=== PATIENT | male | born 1995 | race Caucasian/White ===

== ENCOUNTER 2016-11-21 19:34 | Observation (INO) | payer OTHER ==
[~2016-11-21] VITALS: Ht 180.3 cm; Wt 70.0 kg
[2016-11-21 19:39] VITALS: BP 129/70; PULSE 92; RESP 18; TEMP 97.9; O2SAT 98
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
[2016-11-21] MEDS ORDERED: MORPHINE SULFATE 8 MG/ML INJ IV PUSH ONE ×2 (20:00→22:30)
[2016-11-21 20:15] VITALS: BP 131/73; PULSE 87; RESP 18; O2SAT 98
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
[2016-11-21 21:00] VITALS: BP 117/62; PULSE 85; RESP 18; O2SAT 98
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
[2016-11-21 22:10] VITALS: BP 136/63; PULSE 88; RESP 18; O2SAT 100
[2016-11-21] MEDS ORDERED: NALOXONE HCL 0.4 MG/ML AMP IV PRN (22:30)
[2016-11-21] MEDS ORDERED: oxyCODONE/ACETAMINOPHEN 10 MG/325 MG TAB PO PRN (22:30)
[2016-11-21] MEDS ORDERED: ONDANSETRON HCL 4 MG/2 ML VIAL IV PRN (22:30)
[2016-11-21] MEDS ORDERED: SODIUM CHLORIDE 0.9% FLUSH 5 ML FLUSH IVF PRN (22:30)
[2016-11-21] MEDS ORDERED: HYDROmorphone HCL PF 1 MG/ML VIAL IV PRN (22:30)
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
[2016-11-21] MEDS ORDERED: METHOCARBAMOL 500 MG TAB PO PRN (23:15)
[2016-11-21 23:19] VITALS: BP 117/56
[2016-11-21] MEDS: D5-NS + KCL 20 MEQ INJ 1,000 ML IV SCH (23:35)
[2016-11-22] MEDS: ACETAMINOPHEN/HYDROcodone 325 MG/5 MG TAB PO PRN ×2 (00:04→18:25)
[2016-11-22 00:21] VITALS: BP 131/61; PULSE 71; RESP 18; TEMP 97.8; O2SAT 97
[2016-11-22 05:58] LABS: BASOPHIL % 0.2 % (0.0-2.0); EOSINOPHIL % 0.2 % (0.0-4.0); HEMATOCRIT 36.9 % (39.0-51.0); HEMO FLAGS DIFF FINAL; LYMPH % 13.6 % (9.0-44.0); LYMPHOCYTE # 1.7 TH/MM3 (1.0-4.8); MEAN CELL VOLUME 86.9 FL (80.0-100.0); MEAN CORPUSCULAR HEMOGLOBIN 30.5 PG (27.0-34.0); MEAN CORPUSCULAR HGB CONC 35.1 % (32.0-36.0); MONO % 6.8 % (0.0-8.0); NEUT % 79.2 % (16.0-70.0); PLATELET COUNT 211 TH/MM3 (150-450); RED BLOOD COUNT 4.25 MIL/MM3 (4.50-5.90); RED CELL DISTRIBUTION WIDTH 13.3 % (11.6-17.2); WHITE BLOOD COUNT 12.6 TH/MM3 (4.0-11.0)
[2016-11-22 06:07] LABS: BICARBONATE 24.3 MEQ/L (21.0-32.0); POTASSIUM 3.7 MEQ/L (3.5-5.1)
[2016-11-22 07:43] VITALS: BP 115/56; PULSE 74; RESP 17; TEMP 98.4; O2SAT 98
[2016-11-22] MEDS: D5-NS + KCL 20 MEQ INJ 1,000 ML IV SCH ×2 (08:20→18:29)
[2016-11-22] MEDS: MORPHINE SULFATE 4 MG/ML INJ IV PRN ×2 (08:40→14:48)
[2016-11-22] MEDS ORDERED: SODIUM CHLORIDE 0.9% FLUSH 5 ML FLUSH IVF SCH (09:00)
[2016-11-22] MEDS ORDERED: DOCUSATE SODIUM 100 MG CAP PO SCH (09:00)
[2016-11-22] MEDS ORDERED: PANTOPRAZOLE SOD 40 MG DELAYED RELEASE TAB PO SCH (09:00)
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
[2016-11-22 11:16] VITALS: BP 109/55; PULSE 71; RESP 17; TEMP 98.2; O2SAT 100
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
[2016-11-22 16:18] VITALS: BP 110/56; PULSE 75; RESP 17; TEMP 98.2; O2SAT 99
--- NOTE | 2016-11-22 17:53 | HHI.DCPOC ---
Discharge Care Plan Diagnosis: (1) Intraparenchymal hemorrhage of brain (2) Pneumomediastinum Your Health Problems Are: Difficulty with ADL Chest Pain Loss of Movements Chronic Pain Goals to Promote Your Health * To prevent worsening of your condition and complications * To maintain your health at the optimal level Directions to Meet Your Goals Take your medications as prescribed Follow your dietary instruction Follow activity as directed Keep your appointments as scheduled Take your immunizations and boosters as scheduled If your symptoms worsen call your PCP, if no PCP go to Urgent Care Center or Emergency Room Smoking is Dangerous to Your Health. Avoid second hand smoke Call the 24-hour hour crisis hotline for domestic abuse at Steven Deluna MD Nov 22, 2016 17:52
[2016-11-22] MEDS ORDERED: HYDR-3583 PO (17:57)
[2016-11-22] MEDS ORDERED: METH500T3 PO (17:57)
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
[2016-11-22 19:08] VITALS: BP 106/54; PULSE 69; RESP 18; TEMP 98.2; O2SAT 99
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
== END 2016-11-22 20:01 | disposition home or self-care (01) ==
LOC: NEPE 19:34 → NEDA 22:31 → NEPGCP 23:52
PROVIDERS: ADMIT Neurological Surgery; ATTEND Neurological Surgery
DX: S06.9X1A Unspecified intracranial injury with loss of consciousness of 30 minutes or less, initial encounter (principal); S20.211A Contusion of right front wall of thorax, initial encounter; S40.011A Contusion of right shoulder, initial encounter; T79.7XXA Traumatic subcutaneous emphysema, initial encounter; J98.2 Interstitial emphysema; J93.9 Pneumothorax, unspecified; M54.5 Low back pain; G89.29 Other chronic pain; V87.8XXA Person injured in other specified noncollision transport accidents involving motor vehicle (traffic), initial encounter
CPT/HCPCS: 70450; 71101; 71250; 72040; 72131; 73030; 80048; 85025; 94150; 96374; 99291; G0378; J2270; J2405; J3480